=== PATIENT | female | born 1985 | race Asian ===

== ENCOUNTER → 2021-01-21 | Outpatient (CLI) | payer OTHER ==
[~2021-01-21] MED LIST: IOHEXOL 300 MG/ML 50 ML VIAL. IJ ONE; IOHEXOL 300 MG/ML 50 ML VIAL. ONE
--- NOTE | 2021-01-21 10:10 | RAD ---
EXAM: ULTRASOUND PELVIS INDICATION: Reason: secondary infertility / Spl. Instructions: / History: . Last menstrual period w as 2 days ago. COMPARISON: None available. TECHNIQUE: Transabdominal sonography was performed. FINDINGS: The uterus measures 9.4 x 5.4 x 4.5 cm. The endometrium measures 0.8 cm. There is no focal myometria l abnormality. The uterus is retroverted. The right ovary measures 4.5 x 2.1 x 1.8 cm. The left ovary measures 5.1 x 3.8 x 2.3 cm. No definite adnexal mass is seen. Flow seen to both ovaries. There is no free fluid. IMPRESSION: Normal sonographic survey of the uterus and adnexa. No evidence for ovarian torsion. Electronically signed by: Kaiden Trinh MD (01/21/2021 10:08 AM) [id number]
--- NOTE | 2021-01-21 10:37 | RAD ---
Hysterosalpingogram Indication: Infertility. Comparison: None available. Technique: The risks benefits and alternatives to the procedure were explained in detail. Consent was obtained and final verification was performed. The patient was placed in a supine position. A steril e speculum was inserted into the vaginal cuff. The cervix was cleansed with Betadine 3 times. A ballo on tipped catheter was then inserted into the cervical os. The balloon tip catheter was unable to be passed beyond the internal cervical os and therefore balloon was inflated just caudal to the internal cervical os. Approximately c5c of iodinated nonionic contrast was injected in a retrograde fashion. The patient tolerated the procedure well and there was no evidence of immediate complication. Fluoroscopy time: 0.5 minutes Number of images: 7 Findings: The endometrial cavity has unremarkable size and shape. Air bubbles are seen and do not persist on la ter images. There is the fallopian tubes filled with contrast, and normal spill of contrast into the peritoneal cavity bilaterally. Impression: 1. The balloon catheter was unable to be inserted beyond the internal cervical os, possibly physiolo gic, or from prior procedure or cervical stenosis. This can be correlated with prior history and pelv ic examination 2. There is prompt endometrial and fallopian tube opacification of contrast with normal spillage of contrast into the peritoneal cavity bilaterally. Electronically signed by: Kaiden Trinh MD (01/21/2021 10:34 AM) [facility]
== END | disposition home or self-care (01) ==
LOC: US 07:42
PROVIDERS: ATTEND Obstetrics & Gynecology
DX: N97.8 Female infertility of other origin (principal); Z79.899 Other long term (current) drug therapy
CPT/HCPCS: 58340; 74740; 76856